=== PATIENT | female | born 1945 | race Caucasian/White ===

== ENCOUNTER 2021-04-07 09:15 | Emergency (ER) | payer OTHER ==
[2021-04-07] MEDS ORDERED: ACETAMINOPHEN 325 MG TABLET ONE (10:29)
[2021-04-07] MEDS ORDERED: DIAZEPAM 2 MG TABLET ONE (10:29)
--- NOTE | 2021-04-07 10:29 | ER ---
Nurse's Notes [facility] Name: Gunjan Fajardo Age: 75 yrs Sex: Female : 1945 Arrival Date: 04/07/2021 Time: 09:17 Bed 5 Private MD: Diagnosis: Pain in left hip;Muscle spasm Presentation: 04/07 09:39 Chief complaint: Patient states: Pain to L hip that radiated down to L knee that began ss this morning after getting out of bed. Pt reports the pain has eased up some since first thing this morning. Coronavirus screen: Client denies travel out of the [place] in the last 14 days. Ebola Screen: Patient denies exposure to infectious person. Patient denies travel to an Ebola-affected area in the 21 days before illness onset. Initial Sepsis Screen: Does the patient meet any 2 criteria? No. Patient's initial sepsis screen is negative. Does the patient have a suspected source of infection? No. Patient's initial sepsis screen is negative. Risk Assessment: Do you want to hurt yourself or someone else? Patient reports no desire to harm self or others. Onset of symptoms was April 07, 2021. 09:39 Method Of Arrival: Wheelchair ss 09:39 Acuity: DEBI 4 ss Historical: - Allergies: 09:42 No Known Allergies; ss - PMHx: 09:42 Hypertension; ss - PSHx: 09:42 cardiac stent; ss - Immunization history:: Adult Immunizations up to date. - Social history:: Smoking status: Patient denies any tobacco usage or history of. Screenin:53 Abuse screen: Denies threats or abuse. Denies injuries from another. Nutritional hb screening: No deficits noted. Tuberculosis screening: No symptoms or risk factors identified. Fall Risk None identified. Assessment: 09:53 General: Appears in no apparent distress. Behavior is calm, cooperative. Pain: Pain hb currently is 6 out of 10 on a pain scale. Neuro: Level of Consciousness is awake, alert, obeys commands, Oriented to person, place, time, situation. Cardiovascular: Patient's skin is warm and dry. Respiratory: Respiratory effort is even, unlabored, Respiratory pattern is regular, symmetrical. GI: No signs and/or symptoms were reported involving the gastrointestinal system. : No signs and/or symptoms were reported regarding the genitourinary system. EENT: No signs and/or symptoms were reported regarding the EENT system. Derm: Skin is pink, warm \T\ dry. Musculoskeletal: Reports left hip and left knee pain. Vital Signs: 09:39 BP 161 / 72; Pulse 65; Resp 16; Temp 98.3(O); Pulse Ox 99% on R/A; Weight 77.11 kg; ss Height 5 ft. 7 in. (170.18 cm); Pain 6/10; 09:39 Body Mass Index 26.63 (77.11 kg, 170.18 cm) ED Course: 09:17 Patient arrived in ED. ds1 09:41 Triage completed. 09:43 Arm band placed on right wrist. 09:44 Estiven Escalera PA is PHCP. [facility] 09:44 John Gonzalez MD is Attending Physician. [facility] 09:49 Renetta Frank, RN is Primary Nurse. hb 09:53 Patient has correct armband on for positive identification. Bed in low position. Call hb light in reach. 10:27 Ehsan Martinez MD is Referral Physician. [facility] 10:34 No provider procedures requiring assistance completed. Patient did not have IV access hb during this emergency room visit. Administered Medications: 10:18 Drug: Tylenol 650 mg Route: PO; hb 10:33 Follow up: Response: Medication administered at discharge. hb 10:18 Drug: Valium (diazepam) 2 mg Route: PO; hb 10:33 Follow up: Response: Medication administered at discharge. hb Outcome: 10:28 Discharge ordered by MD. [facility] 10:34 Discharged to home ambulatory, with significant other. hb 10:34 Condition: stable 10:34 Discharge instructions given to patient, significant other, Instructed on discharge instructions, follow up and referral plans. medication usage, Demonstrated understanding of instructions, follow-up care, medications, Prescriptions given X 1. 10:34 Patient left the ED. hb Signatures: Estiven Escalera PA PA Diane Amado ds1 Winifred Gray RN RN Renetta Frank, ASIA RN hb
--- NOTE | 2021-04-07 10:29 | EDPHYS ---
Physician Documentation [facility] Name: Gunjan Fajardo Age: 75 yrs Sex: Female : 1945 Arrival Date: 04/07/2021 Time: 09:17 Bed 5 Private MD: ED Physician John Gonzalez HPI: 04/07 09:44 This 75 yrs old Female presents to ER via Wheelchair with complaints of Hip jmm Pain, Knee Pain. 09:44 The patient or guardian reports pain. Onset: The symptoms/episode began/occurred this jmm morning. Modifying factors: The symptoms are alleviated by nothing, the symptoms are aggravated by any movement. Associated signs and symptoms: Pertinent negatives: abdominal pain, vomiting. This is a 75 year old female with a history of htn that presents to the ED with complaints of left hip pain beginning this morning. Pain radiates from the left lateral thigh down to the knee. Patient states she was picking green beans yesterday. Denies fall or direct trauma. Denies numbness, weakness. Patient states she was initially unable to walk but pain has decreased since onset. Patient denies abdominal pain, vomiting. . Historical: - Allergies: 09:42 No Known Allergies; ss - PMHx: 09:42 Hypertension; ss - PSHx: 09:42 cardiac stent; ss - Immunization history:: Adult Immunizations up to date. - Social history:: Smoking status: Patient denies any tobacco usage or history of. ROS: 10:38 Constitutional: Negative for fever, chills, and weight loss, Cardiovascular: Negative jmm for chest pain, palpitations, and edema, Respiratory: Negative for shortness of breath, cough, wheezing, and pleuritic chest pain. 10:38 MS/extremity: Positive for pain. 10:38 All other systems are negative. Exam: 10:38 Constitutional: This is a well developed, well nourished patient who is awake, alert, jmm and in no acute distress. Head/Face: atraumatic. Eyes: EOMI, no conjunctival erythema appreciated ENT: Moist Mucus Membranes Neck: Trachea midline, Supple Chest/axilla: Normal chest wall appearance and motion. Cardiovascular: Regular rate and rhythm. No edema appreciated Respiratory: Normal respirations, no respiratory distress appreciated 10:38 Back: Normal ROM Skin: General appearance color normal 10:38 Abdomen/GI: Inspection: abdomen appears normal, Bowel sounds: normal, Palpation: abdomen is soft and non-tender, in all quadrants. 10:38 Musculoskeletal/extremity: FROM appreciated to the left hip, full dorsalis pulse, compartments are soft, NVI. Vital Signs: 09:39 BP 161 / 72; Pulse 65; Resp 16; Temp 98.3(O); Pulse Ox 99% on R/A; Weight 77.11 kg; ss Height 5 ft. 7 in. (170.18 cm); Pain 6/10; 09:39 Body Mass Index 26.63 (77.11 kg, 170.18 cm) ss MDM: 09:44 Patient medically screened. lissette 10:27 Data reviewed: vital signs, nurses notes. Counseling: I had a detailed discussion with [facility] the patient and/or guardian regarding: the historical points, exam findings, and any diagnostic results supporting the discharge/admit diagnosis, the need for outpatient follow up, to return to the emergency department if symptoms worsen or persist or if there are any questions or concerns that arise at home. 10:38 ED course: Patient was able to ambulate in the ED. Patient states she is feeling much jmm better. Patient advised to follow up with ortho for further evaluation. patient is otherwise given strict return precautions. patient understood and agrees with the plan of care. . Administered Medications: 10:18 Drug: Tylenol 650 mg Route: PO; hb 10:33 Follow up: Response: Medication administered at discharge. hb 10:18 Drug: Valium (diazepam) 2 mg Route: PO; hb 10:33 Follow up: Response: Medication administered at discharge. hb Disposition: 04/07/21 10:28 Discharged to Home. Impression: Pain in left hip, Muscle spasm. - Condition is Stable. - Discharge Instructions: Joint Pain, Spasticity. - Prescriptions for orphenadrine citrate 100 mg Oral Tablet Sustained Release - take 1 tablet by ORAL route 2 times per day As needed; 20 tablet. - Medication Reconciliation Form, Thank You Letter, Antibiotic Education, Prescription Opioid Use form. - Follow up: Ehsan Martinez MD; When: 2 - 3 days; Reason: Recheck today's complaints, Continuance of care, Re-evaluation by your physician. Addendum: 04/10/2021 08:48 Co-signature as Attending Physician, John Gonzalez MD I agree with the assessment and c dominguez plan of care. Signatures: John Gonzalez MD MD cha Mickail, Joel, PA PA jm Winifred Gray RN RN Renetta Frank RN RN Corrections: (The following items were deleted from the chart) 04/07 10:34 10:28 04/07/2021 10:28 Discharged to Home. Impression: Pain in left hip; Muscle spasm. hb Condition is Stable. Forms are Medication Reconciliation Form, Thank You Letter, Antibiotic Education, Prescription Opioid Use. Follow up: Ehsan Martinez; When: 2 - 3 days; Reason: Recheck today's complaints, Continuance of care, Re-evaluation by your physician. [facility] 10:40 09:44 This is a 75 year old female with a history of htn that presents to the ED with [facility] complaints of left hip pain beginning . [facility]
[2021-04-07 10:39] VITALS: BP 161/72; TEMP 98.3; O2SAT 99
== END 2021-04-07 10:34 | disposition home or self-care (01) ==
LOC: ER 09:15
DX: M62.838 Other muscle spasm (principal); I10 Essential (primary) hypertension; Z95.818 Presence of other cardiac implants and grafts
CPT/HCPCS: 99283